=== PATIENT | male | born 1990 | race African-American/Black ===

== ENCOUNTER 2021-03-23 22:21 | Emergency (ER) | payer MEDICAID ==
[~2021-03-23] VITALS: Ht 175.3 cm; Wt 90.0 kg
[2021-03-24] MEDS ORDERED: TC1U15 TP (00:01)
[2021-03-24] MEDS ORDERED: DIPH28CR10 TP (00:01)
[2021-03-24 00:23] VITALS: BP 146/86
== END 2021-03-24 00:23 | disposition home or self-care (01) ==
LOC: ER 22:21
DX: M79.674 Pain in right toe(s) (principal); L29.9 Pruritus, unspecified
CPT/HCPCS: 99283